=== PATIENT | male | born 1950 | race Caucasian/White ===

== ENCOUNTER 2019-03-01 10:32 | Outpatient (CLI) | payer MEDICARE, BC, SELFPAY ==
--- NOTE | 2019-03-01 10:17 | DI.RAD_ITS ---
EXAM: XR HIP LT COMPLETE AP PELVIS INDICATION: HIP PAIN. COMPARISON: No exams were available for comparison TECHNIQUE: 2D digital imaging was performed. FINDINGS: There is joint space narrowing, articular sclerosis and mild periarticular hypertrophic spurring invo lving the left hip. IMPRESSION: Findings are consistent with severe DJD.
== END 2019-03-01 10:52 ==
PROVIDERS: Referring Provider General Practice; Visit Provider Student in an Organized Health Care Education/Training Program
DX: M25.552 Pain in left hip (principal); M16.12 Unilateral primary osteoarthritis, left hip
CPT/HCPCS: 99203; 73502

== ENCOUNTER 2019-03-11 03:17 | Outpatient (CLI) | payer MEDICARE, BC, SELFPAY ==
[2019-03-11] MEDS: methylPREDNISolone ACETATE 80 MG/ML VIAL IM (15:40)
[2019-03-11] MEDS: Bupivacaine 0.5% Pres-Free 10 ML VIAL 2 ML IJ (15:41)
[2019-03-11] MEDS: Omnipaque 300 MG/ML 10 ML BTL 5 ML IJ (15:42)
--- NOTE | 2019-03-11 15:50 | DI.RAD_ITS ---
EXAM: RF JOINT INJECTION FLUORO GUID CLINICAL HISTORY: HIP PAIN,OA LT HIP, M16.12. TECHNIQUE: 2D and realtime digital imaging was performed. COMPARISON: No exams were available for comparison FINDINGS: C-arm fluoroscopy utilized by Dr. Lazaro during left hip joint injection. Hard copy shows intraart icular left hip joint injection. FLUORO TIME: 4 sec
--- NOTE | 2019-03-11 21:06 | W.PROCNOTE ---
Date of service: 03/11/19 Time of Service: 17:06 Procedure Note Date of procedure: 03/11/19 Procedure: Left Hip Injection with Fluoroscopic Guidance Surgeon/Proceduralist/Physician: Donell Lazaro Procedure Diagnosis: Left Hip Osteoarthritis Procedure Indications: Juan has had persistent pain of the LEFT hip and groin. Noninvasive measures have been tried. To serve as both diagnostic and therapeutic, an injection under fluoroscopy was recommended. I had discussed the risks of the procedure and the patient elected to proceed. Procedure Description: Juan was greeted in the flouroscopy room. The correct side was identified and the consent was reviewed with the patient and signed. The patient was then placed in the supine position on the fluoroscopy table. The LEFT hip was then prepped with Chloraprep. The anterolateral injection starting point was identiifed by bony landmarks and fluoroscopy. The skin and soft tissue in the tract of the injection was anesthetized with 1% Lidocaine. A spinal needle was then inserted deep into the hip joint at the level of the lateral femoral neck under fluoroscopic guidance. A small amount of Omnipaque solution was injected to confirm intraarticular placement. Once confirmed, the hip was injected with 6cc of 0.5% Bupivicaine and 80mg of Depo-Medrol. A bandaid was placed on the injection site. The patient tolerated the procedure well and noted improvement in pre-injection pain.
== END 2019-03-11 03:37 ==
PROVIDERS: PCP General Practice; Visit Provider Student in an Organized Health Care Education/Training Program
DX: M25.552 Pain in left hip (principal); M16.12 Unilateral primary osteoarthritis, left hip
CPT/HCPCS: 20610; 77002; J1040